=== PATIENT | male | born 1985 | race Caucasian/White ===

== ENCOUNTER 2017-02-05 09:57 | Emergency (ER) | payer MEDICAID, OTHER ==
[~2017-02-05] VITALS: Ht 182.9 cm; Wt 83.9 kg
[~2017-02-05 09:57] MED LIST: METFORMIN HCL1000 M1 ORAL
[2017-02-05 10:01] VITALS: BP 136/85
[2017-02-05] MEDS ORDERED: LANTUS SOL100 UNIT/1 SUBQ (10:06)
--- NOTE | 2017-02-05 10:14 | Emergency Room Report ---
History of Present Illness General Chief Complaint: General Complaint Source: Patient Present Illness HPI Patient presents with complaints of left foot swelling and ecchymosis Patient reports that he was playing basketball on Saturday landed in in all cords fashion on the left foot essentially direct hit in a twisting motion the area has been swollen and ecchymotic Pain is worse with ambulation and presents for further eval Denies any ankle pain denies any knee pain pain is 5/10 Allergies: Coded Allergies: PENICILLINS (Unverified Allergy, Intermediate, Hives, 03/26/14) SULFA (SULFONAMIDE ANTIBIOTICS) (Unverified Allergy, Intermediate, Hives, 03/26/14) Patient History Past Medical History: see triage record Pertinent Family History: none Reviewed Nursing Documentation: PMH: Agreed, PSxH: Agreed Nursing Documentation-PMH Hx Diabetes: Yes Hx Gastrointestinal Problems: Yes - PANCREATITIS Review of Systems All Other Systems: negative except mentioned in HPI Physical Exam Vital Signs Date Time Temp Pulse Resp B/P (MAP) Pulse Ox O2 Delivery O2 Flow Rate FiO2 02/05/17 10:01 98.2 107 19 136/85 96 Room Air Sp02 EP Interpretation: reviewed, normal General Appearance: well appearing, no apparent distress Head: normocephalic, atraumatic Eyes: bilateral eye PERRL, bilateral eye EOMI ENT: normal pharynx Neck: supple Respiratory: chest non-tender Musculoskeletal: other - Ecchymosis and swelling to the dorsal left foot mainly distal aspect, patient able to move digits, Neurologic: alert, oriented x3, responsive, strategic planning director III-XII nml as tested Skin: other - as above Lymphatic: no adenopathy Procedures Splinting Splinting : Consent: Verbal Location: left leg Pre-Made Type: Hand-Made Type: plaster Splint: poserior short Pre-Proc Neuro Vasc Exam: normal Post-Proc Neuro Vasc Exam: normal Patient Tolerated: Well Complications: None Medical Decision Making Diagnostic Impression: Primary Impression: Metatarsal bone fracture ER Course Given the clinical evaluation patient had x-ray imaging obtained there is evidence of a fifth metatarsal fracture Patient has splints applied as noted Will be non-weightbearing And requires close orthopedic followup Other X-Ray Diagnostic Results Other X-Ray Diagnostic Results : X-Ray ordered: left foot # of Views/Limited Vs Complete: 3 View Indication: Pain EP Interpretation: Yes Interpretation: other - Acute fracture of the fifth metatarsal, mild displacement, mild soft tissue swelling , Impression: Other - acute fracture fifth metatarsal Electronically Signed by: Edwige Leonard DO Last Vital Signs Date Time Temp Pulse Resp B/P (MAP) Pulse Ox O2 Delivery O2 Flow Rate FiO2 02/05/17 10:01 98.2 107 19 136/85 96 Room Air Status: improved Disposition: HOME, SELF-CARE Condition: Improved Scripts Ibuprofen* (MOTRIN*) 600 Mg Tablet 600 MG ORAL Q8H Y for For Pain, #30 TAB 0 Refills Prov: EDWIGE LEONARD D.O. 02/05/17 Additional Instructions: Patient is provided with the discharge instructions notified to follow up with primary doctor in the next 2-3 days otherwise return to the er with any worsening symptoms. Please note that this report is being documented using [employer] technology. This can lead to erroneous entry secondary to incorrect interpretation by the dictating instrument. EDWIGE LEONARD D.O. Feb 05, 2017 10:14
[2017-02-05] MEDS ORDERED: IBUPROFEN600 MG ORAL (10:33)
[2017-02-05 11:13] VITALS: BP 136/85
--- NOTE | 2017-02-05 11:15 | Diagnostic Imaging Report ---
Indication: Pain Comparison: None Findings: 3 views of the left foot were obtained. There is an oblique, relatively longitudinal acute fracture involving the shaft of the fifth metatarsal. Impression: Acute fifth metatarsal fracture
== END 2017-02-05 11:13 | disposition home or self-care (01) ==
LOC: EMR 10:14
DX: S92.352A Displaced fracture of fifth metatarsal bone, left foot, initial encounter for closed fracture (principal); X50.1XXA Overexertion from prolonged static or awkward postures, initial encounter; Y93.67 Activity, basketball; Y92.89 Other specified places as the place of occurrence of the external cause; E11.9 Type 2 diabetes mellitus without complications; Z88.0 Allergy status to penicillin; Z88.8 Allergy status to other drugs, medicaments and biological substances
CPT/HCPCS: 29505; 29515; 99283

== ENCOUNTER 2017-02-11 11:24 | Emergency (ER) | payer OTHER ==
[~2017-02-11] VITALS: Ht 182.9 cm; Wt 81.6 kg
[~2017-02-11 11:24] MED LIST changes: +IBUPROFEN600 MG ORAL; +LANTUS SOL100 UNIT/1 SUBQ
[2017-02-11] MEDS ORDERED: DICLOXACILLIN500 M1 ORAL (11:39)
[2017-02-11] MEDS ORDERED: GLIPIZIDE5 MG ORAL (11:39)
--- NOTE | 2017-02-11 11:52 | Emergency Room Report ---
History of Present Illness General Chief Complaint: Lower Extremity Injury Source: Patient Present Illness HPI Patient was here recently with an acute fracture on the left foot Patient was seen here and had a splint applied He reports that he was seen by a physician in [place] who took the splint off And patient presents that the discomfort has continued Patient was asking regarding his followup with orthopedics he reports that his physician that he saw mentioned he should have the referral by now Otherwise denies any other pain to the knee or hip area Patient reports that someone did step on his foot recently since the previous injury Allergies: Coded Allergies: PENICILLINS (Unverified Allergy, Intermediate, Hives, 03/26/14) SULFA (SULFONAMIDE ANTIBIOTICS) (Unverified Allergy, Intermediate, Hives, 03/26/14) Patient History Past Medical History: see triage record Pertinent Family History: none Reviewed Nursing Documentation: PMH: Agreed, PSxH: Agreed Nursing Documentation-PMH Hx Diabetes: Yes Hx Gastrointestinal Problems: Yes - PANCREATITIS Review of Systems All Other Systems: negative except mentioned in HPI Physical Exam Vital Signs Date Time Temp Pulse Resp B/P (MAP) Pulse Ox O2 Delivery O2 Flow Rate FiO2 02/11/17 11:33 99.0 111 16 132/89 97 Room Air Sp02 EP Interpretation: reviewed, normal General Appearance: well appearing, no apparent distress Head: normocephalic, atraumatic Eyes: bilateral eye PERRL, bilateral eye EOMI ENT: normal pharynx Neck: supple Respiratory: lungs clear Musculoskeletal: other - Ecchymosis involving the left foot otherwise neurovascularly intact, Neurologic: alert, oriented x3, responsive Skin: other Lymphatic: no adenopathy Procedures Splinting Splinting : Consent: Verbal Location: right foot Pre-Made Type: Hand-Made Type: plaster Splint: poserior short Pre-Proc Neuro Vasc Exam: normal Post-Proc Neuro Vasc Exam: normal Patient Tolerated: Well Complications: None Medical Decision Making Diagnostic Impression: Primary Impression: Foot fracture, left ER Course The patient's ecchymosis that she looks significantly improved from previous Patient had been notified of the importance of close orthopedic followup patient reports that he has seen a primary physician At this time essentially requesting Toradol IM He is in a recovery house and reports that he's not able to take narcotics I do not feel that this medications appropriate IM at this time given the time span the presentation Patient was resplinted in the emergency room and requires followup outpatient process Last Vital Signs Date Time Temp Pulse Resp B/P (MAP) Pulse Ox O2 Delivery O2 Flow Rate FiO2 02/11/17 11:33 99.0 111 16 132/89 97 Room Air Status: unchanged Disposition: HOME, SELF-CARE Condition: Stable Additional Instructions: Patient is provided with the discharge instructions notified to follow up with primary doctor in the next 2-3 days otherwise return to the er with any worsening symptoms. Please note that this report is being documented using [email or web address] technology. This can lead to erroneous entry secondary to incorrect interpretation by the dictating instrument. CHERELLE LEONARD D.O. Feb 11, 2017 11:52
[2017-02-11 12:15] VITALS: BP 128/84
== END 2017-02-11 12:18 | disposition home or self-care (01) ==
LOC: EMR 12:01
DX: S92.902A Unspecified fracture of left foot, initial encounter for closed fracture (principal); W50.0XXA Accidental hit or strike by another person, initial encounter; Y92.89 Other specified places as the place of occurrence of the external cause; E11.9 Type 2 diabetes mellitus without complications; Z88.0 Allergy status to penicillin; Z88.2 Allergy status to sulfonamides
CPT/HCPCS: 29515; 99283

== ENCOUNTER 2017-02-23 15:15 | Emergency (ER) | payer OTHER ==
[~2017-02-23] VITALS: Ht 182.9 cm; Wt 86.2 kg
[~2017-02-23 15:15] MED LIST changes: +DICLOXACILLIN500 M1 ORAL; +GLIPIZIDE5 MG ORAL
[2017-02-23 15:17] VITALS: BP 135/86
--- NOTE | 2017-02-23 15:27 | Emergency Room Report ---
History of Present Illness General Chief Complaint: Medication Refill Source: Patient, Medical Record Present Illness HPI 31-year-old male presents to the emergency department requesting medication refill for his diabetic medications. Patient states that he is type II diabetic and takes 2 medications twice daily to manage his glucose. Patient states he took his last dosages this morning. Patient states he takes glipizide and metformin. Patient denies abdominal pain, nausea, vomiting, changes in mental status, polyuria, polydipsia or headache. Allergies: Coded Allergies: PENICILLINS (Unverified Allergy, Intermediate, Hives, 03/26/14) SULFA (SULFONAMIDE ANTIBIOTICS) (Unverified Allergy, Intermediate, Hives, 03/26/14) Patient History Past Medical History: see triage record Past Surgical History: none Pertinent Family History: none Reviewed Nursing Documentation: PMH: Agreed, PSxH: Agreed Nursing Documentation-PMH Past Medical History: No History, Except For Hx Diabetes: Yes Hx Gastrointestinal Problems: Yes - PANCREATITIS Review of Systems All Other Systems: negative except mentioned in HPI Physical Exam Vital Signs Date Time Temp Pulse Resp B/P (MAP) Pulse Ox O2 Delivery O2 Flow Rate FiO2 02/23/17 15:17 98.2 99 18 135/86 97 Room Air Sp02 EP Interpretation: reviewed, normal General Appearance: no apparent distress, alert, GCS 15, non-toxic Head: normocephalic, atraumatic Eyes: bilateral eye normal inspection, bilateral eye PERRL ENT: hearing grossly normal, normal voice Neck: full range of motion Respiratory: lungs clear, normal breath sounds, speaking full sentences Cardiovascular #1: regular rate, rhythm Gastrointestinal: non tender Musculoskeletal: back normal, gait/station normal, normal range of motion, non- tender Neurologic: alert, oriented x3, responsive, motor strength/tone normal, sensory intact, speech normal Skin: normal color, no rash, warm/dry, well hydrated Medical Decision Making PA Attestation Dr. Staton is my supervising Physician whom patient management has been discussed with. Diagnostic Impression: Primary Impression: Encounter for medication refill ER Course 31-year-old male presents to the emergency department requesting medication refill for his diabetic medications. Patient states that he is type II diabetic and takes 2 medications twice daily to manage his glucose. Patient states he took his last dosages this morning. Patient states he takes glipizide and metformin. Patient denies abdominal pain, nausea, vomiting, changes in mental status, polyuria, polydipsia or headache. Ddx considered but are not limited to: drug seeking, OD, hyperglycemia, DKA/HONK , medication non-compliance just to name a few. Vital signs: are WNL, pt. is afebrile H&PE are most consistent with need for medication refill, with good compliance with medications. ORDERS: none required at this time, the diagnosis is clinical ED INTERVENTIONS: None required at this time. -Discussed with patient that he needs to followup with his PMD in 3-5 days to facilitate future medication refills. D/W with patient to return to the emergency department promptly with any new symptoms. DISCHARGE: At this time pt. is stable for d/c to home. Will provide printed patient care instructions, and any necessary prescriptions. Care plan and follow up instructions have been discussed with the patient prior to discharge. Last Vital Signs Date Time Temp Pulse Resp B/P (MAP) Pulse Ox O2 Delivery O2 Flow Rate FiO2 02/23/17 15:17 98.2 99 18 135/86 97 Room Air Disposition: HOME, SELF-CARE Condition: Stable Scripts Glipizide (Glipizide) 10 Mg Tablet 10 MG ORAL BID for 30 Days, #60 TAB 0 Refills Prov: Briseida Jarvis 02/23/17 Metformin Hcl* (METFORMIN HCL*) 1,000 Mg Tablet 1000 MG ORAL BID for 30 Days, #60 TAB Prov: Briseida Jarvis 02/23/17 Patient Instructions: Medicine Refill at the Emergency Department Additional Instructions: Take medications as directed. Follow up with a Primary Care Provider in 3-5 days, even if your symptoms have resolved. --Please review list of primary care clinics, if you do not already have a primary care provider Return sooner to ED if new symptoms occur, or current symptoms become worse. - Please note that this Emergency Department Report was dictated using [employer] sales distributor technology software, occasionally this can lead to erroneous entry secondary to interpretation by the dictation equipment. Briseida Jarvis Feb 23, 2017 15:27
[2017-02-23] MEDS ORDERED: METFORMIN HCL1000 M1 ORAL (15:30)
[2017-02-23] MEDS ORDERED: GLIPIZIDE XL10 MG ORAL (15:30)
[2017-02-23 15:36] VITALS: BP 133/78
== END 2017-02-23 15:34 | disposition home or self-care (01) ==
LOC: EMR 15:30
DX: Z76.0 Encounter for issue of repeat prescription (principal); E11.9 Type 2 diabetes mellitus without complications; Z88.0 Allergy status to penicillin; Z88.2 Allergy status to sulfonamides
CPT/HCPCS: 99284

== ENCOUNTER 2017-04-04 12:52 | Emergency (ER) | payer OTHER ==
[~2017-04-04] VITALS: Ht 182.9 cm; Wt 88.5 kg
[~2017-04-04 12:52] MED LIST changes: +GLIPIZIDE XL10 MG ORAL
--- NOTE | 2017-04-04 15:04 | Emergency Room Report ---
History of Present Illness General Chief Complaint: General Complaint Present Illness HPI 32-year-old male presents to the emergency department complaining of 8/10 in severity sinus pressure, bilateral ear pain/fullness, nasal congestion, and rhinorrhea. Patient reports history of sinusitis which required antibiotics in the past he denies fevers or chills. Patient denies purulent discharge he reports having difficulty blowing his nose due to congestion. he has not used any sqxg-lif-nwdiuue medications. reports intermittent environmental allergies. Onset of the symptoms were since yesterday. Denies high fevers, lethargy, neck stiffness, irritability, dehydration, N/V/D. Denies Cp, Palpitations, LOC, AMS, seizures, paresthesias, or changes in Hearing or vision, no Sudden severe DOTY. Allergies: Coded Allergies: PENICILLINS (Unverified Allergy, Intermediate, Hives, 03/26/14) SULFA (SULFONAMIDE ANTIBIOTICS) (Unverified Allergy, Intermediate, Hives, 03/26/14) Patient History Past Medical History: see triage record Past Surgical History: none Pertinent Family History: none Immunizations: UTD Reviewed Nursing Documentation: PMH: Agreed, PSxH: Agreed Nursing Documentation-PMH Hx Diabetes: Yes Hx Gastrointestinal Problems: Yes - PANCREATITIS Review of Systems All Other Systems: negative except mentioned in HPI Physical Exam Vital Signs Date Time Temp Pulse Resp B/P (MAP) Pulse Ox O2 Delivery O2 Flow Rate FiO2 04/04/17 13:03 97.3 105 20 117/65 97 Room Air Sp02 EP Interpretation: reviewed, normal General Appearance: no apparent distress, alert, GCS 15, non-toxic Head: normocephalic, atraumatic Eyes: bilateral eye normal inspection, bilateral eye PERRL ENT: hearing grossly normal, normal pharynx, no angioedema, normal voice, TMs + canals normal, uvula midline, nasal congestion - clear rhinorrhea, swollen turbinates bilaterally, no purulent d/c noted. , pharyngeal erythema - cobble stone appearance, no exudates, no tonsillar swelling. Neck: full range of motion, no meningismus, no bony tend, supple/symm/no masses Respiratory: chest non-tender, lungs clear, normal breath sounds, no respiratory distress, no wheezing, speaking full sentences Cardiovascular #1: regular rate, rhythm Gastrointestinal: non tender, soft Rectal: deferred Genitourinary: normal inspection, no CVA tenderness Musculoskeletal: back normal, gait/station normal, normal range of motion, non- tender Neurologic: alert, oriented x3, responsive, motor strength/tone normal, sensory intact, normal gait, speech normal Skin: normal color, no rash, warm/dry, well hydrated Medical Decision Making PA Attestation Dr. lopez is my supervising Physician whom patient management has been discussed with. Diagnostic Impression: Primary Impression: Acute maxillary sinusitis Qualified Codes: J01.00 - Acute maxillary sinusitis, unspecified Additional Impression: Nasal congestion ER Course 32-year-old male presents to the emergency department complaining of 8/10 in severity sinus pressure, bilateral ear pain/fullness, nasal congestion, and rhinorrhea. Patient reports history of sinusitis which required antibiotics in the past he denies fevers or chills. Patient denies purulent discharge he reports having difficulty blowing his nose due to congestion. he has not used any [id number]-tmb-gtpfqdr medications. reports intermittent environmental allergies. Onset of the symptoms were since yesterday. Denies high fevers, lethargy, neck stiffness, irritability, dehydration, N/V/D. Denies Cp, Palpitations, LOC, AMS, seizures, paresthesias, or changes in Hearing or vision, no Sudden severe DOTY. Ddx considered but are not limited to URI, pneumonia, PE, strep pharyngitis, meningitis, Sinusitis Vital signs: Pt. is afebrile, the remaining VS are WNL H&PE are most consistent with URI- no meningeal signs, oropharynx is not involved, no evidence of bacterial infection at this time. no evidence of bacterial sinusitis at this time. --Pt. does not meet criteria to rx abx at this time. ORDERS: none required at this time, the diagnosis is clinical ED INTERVENTIONS: None required at this time. --PT. EDUCATION: Discussed antibiotic resistance with inappropriate prescribing of antibiotics for viral illnesses. Discussed signs and symptoms to indicate viral illness versus bacterial illness. DISCHARGE: At this time pt. is stable for d/c to home. Will provide printed patient care instructions, and any necessary prescriptions. Care plan and follow up instructions have been discussed with the patient prior to discharge. Last Vital Signs Date Time Temp Pulse Resp B/P (MAP) Pulse Ox O2 Delivery O2 Flow Rate FiO2 04/04/17 13:03 97.3 105 20 117/65 97 Room Air Disposition: HOME, SELF-CARE Condition: Stable Scripts Ibuprofen* (MOTRIN*) 400 Mg Tablet 400 MG ORAL THREE TIMES A DAY, #30 TAB 0 Refills Prov: Briseida Jarvis 04/04/17 Fluticasone Furoate (FLONASE SENSIMIST) 9.9 Ml [place].susp 1 SPRAYS NS DAILY, #9.9 ML Prov: Briseida Jarvis 04/04/17 Loratadine/Pseudoephedrine (CLARITIN-D 24 HOUR TABLET) 1 Each Tab.er.24h 1 TAB PO DAILY for 14 Days, #14 TAB Prov: Briseida Jarvis 04/04/17 Oxymetazoline HCl (Afrin) 15 Ml [place] 2 SPRAY NASAL TWICE A DAY for 3 Days, #15 SPRAY Prov: Briseida Jarvis 04/04/17 Patient Instructions: Sinusitis, Adult, [id number] Additional Instructions: Take medications as directed. Follow up with a Primary Care Provider in 3-5 days, even if your symptoms have resolved. --Please review list of primary care clinics, if you do not already have a primary care provider Symptoms persist greater than 10 days, you should be reevaluated for need for antibiotics. Return sooner to ED if new symptoms occur, or current symptoms become worse. - Please note that this Emergency Department Report was dictated using [employer] Corporation[employer] counsel technology software, occasionally this can lead to erroneous entry secondary to interpretation by the dictation equipment. Briseida Jarvis Apr 04, 2017 15:04
[2017-04-04] MEDS ORDERED: CLARITIN-D 241 EACH PO (15:06)
[2017-04-04] MEDS ORDERED: FLONASE SENSIM9.9 ML NS (15:06)
[2017-04-04] MEDS ORDERED: IBUPROFEN400 MG ORAL (15:06)
[2017-04-04] MEDS ORDERED: AFRIN NASAL SPR30 ML NASAL (15:06)
[2017-04-04 15:20] VITALS: BP 114/77
== END 2017-04-04 16:00 | disposition home or self-care (01) ==
LOC: EMR 15:32
DX: J01.00 Acute maxillary sinusitis, unspecified (principal); E11.9 Type 2 diabetes mellitus without complications; Z88.0 Allergy status to penicillin; Z88.2 Allergy status to sulfonamides
CPT/HCPCS: 99284